=== PATIENT | male | born 1945 | race Caucasian/White ===

== ENCOUNTER 2024-06-01 11:00 | Outpatient (RCR) | payer MEDICARE, SELFPAY ==
--- NOTE | 2024-04-14 11:38 | HP.SP.EVAL ---
Visit History Visit Info Date of Eval: 04/13/24 Visit: 1 Molding Machine Operator: LUIZ History Attending Doctor: ANTHONY DUMONT Referring Doctor: ANTHONY DUMONT Reason for Referral: EXPRESSIVE APHAGIA DR MAGO HILL Date of Onset of Diagnosis: 03/10/24 Previous speech therapy: Yes Results: Evaluated in the hospital and recommended therapy for mild to moderate expressive aphasia Other Relevant Medical History/Diagnoses/Surgery: Patient experienced stroke symptoms on 03/10/24 and his called an ambulance for expressive aphasia, right facial droop and dysarthria. He was taken to [facility] with a stroke workup which showed a small ischemic stroke in posterior left frontal lobe. 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 Pain Is pain an issue with your current prescribed condition?: No Personal Preferred language: Tunisian Subjective Dysphagia Current Diet Solids Current Diet: Regular Current Diet Liquids Current Liquids: Thin Comments Comments: -: No swallowing deficits reported. Subjective Oral Motor Subjective Patient Reports: Drooling Facial Drooping: Right Comments Comments: Mild right facial droop. Objective Oral Motor Labial Impairment: Mild Closure: WNL Pucker: WFL Retraction: WFL Alternating Pucker/Retraction: WFL Involuntary Movement noted: No Labial Comments Comments: Slight drooling on right side with wetness in the corner of mouth. Noted weakness with labial strength during kisses and pops. Lingual Impairment: WNL Protrusion: WNL Retraction: WNL Lateralization: WNL Involuntary Movement: No Jaw Impairment: WNL Respiratory Status Respiratory Status: Room Air Objective Cog/Ling/Com Test Administered Ergmppywu-Kdwhxtiipb-Axjlgotolesmc Assessment Administered: Yes Dunypbytb-Cugfxjfgdn-Whvoqmaxtxskn Assessment: Cognitive ? Linguistic skills were evaluated using patient/family interview, skilled observation and informal evaluation through tasks completed by the patient. Orientation Orientation: Person, Place, Date, Day, Birthdate and Medical Diagnosis Answer Yes/No Questions Simple: WNL Follows Commands Complex: Mild Automatic Sequences Automatic Sequences: WNL Naming Naming in categories: WFL Abstract: Mild Conversational Tasks Conversational Tasks: Moderate Comments: During conversation, Kevin demonstrated significant hesitations during every sentence which created choppy communication. He verbalized that he knows the words but has difficulty in saying them. He was very quiet during the session and it was noted that he appeared to be hesitant during conversation. His speech was very slow and noted to be deliberate. During the evaluation he only spoke when answering questions or completing a task but voluntarily gave no information or comments. . At this time his communication interferes with activities of daily living as he will not use the phone to talk to family or medical providers. his stated that he has made gains since the hospital discharge but in the last week has not made significant gains like in the beginning. Skilled therapy is medically necessary for functional communication and safety of ability to communicate wants and needs. Comments Comments: pictures labeled without hesitation. Problem Solving Simple: WFL Complex: WFL Judgement & Reasoning Judgement/Reasoning: WFL Objective Dysarthira/Motor Speech Intelligibility Single Words: WFL Sentences: WFL Conversation: Mild Volume Volume: Mild Consistency w/Multiple Repetitions Words: WFL Observation Observation of Apraxia of Speech: No Oral Groping for Placement: No Inconsistent Errors: No Awareness/Strategy Use Uses strategies intermittently to improve intelligibility or listener's understanding of message: Yes Comments Multisyllabic words: -: In single words Kevin was able to say 3 syllable words with 95% accuracy. In conversation it was noted that longer words had greater hesitations and his stated at home that he will sometimes need to repeat a longer word several times to communicate it clearly. Reference: Neuro-QoL instrument HDQLIFE - Speech Difficulties In the past 7 days. It was difficult for other people to understand me.: Sometimes Is was difficult to speak clearly?: Always In the past 7 days.. How often did you limit your social activites because you had difficulty speaking?: Never In the past 7 days... I had trouble speaking.: Very much I was frustrated by my speech difficulties.: A little bit How much DIFFICULTY do you have... ...saying what you want to say?: A lot of difficulty Score HDQLIFE Speech Difficulties Raw Score: 20 HDQLIFE Speech Difficulties T - Score: 60 Radiation Oncology Patient Plan Plan Plan: Speech therapy is warranted for expressive aphasia and mild dysarthria. Recommendations Treatment Warranted: Yes Treatment Warranted: Receptive/ Expressive Language and Other: Comment: Dysarthria Progress Prognosis: Good Frequency Frequency: 1x/Week Duration: 6 Weeks Visits in this POC: 6 Patient/Family Goal Patient/Family Goal: Patient would like to communicate better. Goals that are Established Determination:: Goals will be added/modified as deemed necessary and appropriate. Therapy will be discontinued when results of re-evaluation indicate therapy is no longer needed or lack of progress has been documented. Goal #1-5 Goal #1: Kevin will demonstrate ability to complete labial exercises independently for increased lip strength for reduced drooling and control of liquids while drinking. Goal #2: Kevin will say a sentences of increasing length up to 10 words with no hesitations on 4/5 trials on 3/4 consecutive sessions. Goal #3: Kevin will produce multisyllabic words ( 3+ syllables) in sentences with no errors on 80% of trials on 3/4 consecutive sessions. Education Patient Instruction Patient Education: Diagnosis, Treatment Plan and Goals Person Taught: Patient and Family Response to teaching: Verbalize understanding
--- NOTE | 2024-06-01 11:33 | HP.SP.DC_ITS ---
ST Discharge Summary Discharged: Discharge: Kevin Layton is discharged from [facility] speech therapy as of June 01, 2024 as all his goals have been met. He was evaluated on 04/14/24 following his CVA. His goals focused on oral motor exercises to reduce labial drooping, producing multisyllabic words, and increasing sentences of up to 10 words without errors. At this time his communication is within normal limits and he is in agreement with discharge. Please see daily notes for details. Thank you for allowing me to participate in the care of this patient.
== END 2024-06-01 19:00 | disposition home or self-care (01) ==
LOC: SP 11:00
DX: I67.9 Cerebrovascular disease, unspecified (principal); R47.01 Aphasia
CPT/HCPCS: 92507; 92523